=== PATIENT | female | born 1955 | race Caucasian/White ===

== ENCOUNTER 2018-01-13 12:35 | Outpatient (CLI) | payer BC | END 2018-01-13 12:36 | disposition home or self-care (01) | LOC: BICMAMMO 12:35 | PROVIDERS: ATTEND Internal Medicine | DX: Z12.31 Encounter for screening mammogram for malignant neoplasm of breast (principal) | CPT/HCPCS: 77063; 77067 ==

== ENCOUNTER 2019-01-16 08:57 | Outpatient (CLI) | payer BC, MEDICARE ==
--- NOTE | 2019-01-16 11:33 | MMO ---
Bilateral MAMMO Bilat Screen [facility]. CLINICAL HISTORY: Patient is 63 years old and is seen for screening. The patient has no family history of breast cancer. The patient has no personal history of cancer. VIEWS: The views performed were: bilateral craniocaudal with tomosynthesis and bilateral mediolateral oblique with tomosynthesis. FILMS COMPARED: The present examination has been compared to prior imaging studies performed at [facility] on 08/06/2014, 09/13/2015, 09/30/2016 and 01/13/2018. This study has been interpreted with the assistance of computer-aided detection. MAMMOGRAM FINDINGS: There are scattered fibroglandular densities. There are no suspicious masses, suspicious calcifications, or new areas of architectural distortion. IMPRESSION: THERE IS NO MAMMOGRAPHIC EVIDENCE OF MALIGNANCY. A ROUTINE FOLLOW-UP MAMMOGRAM IN 1 YEAR IS RECOMMENDED. THE RESULTS OF THIS EXAM WERE SENT TO THE PATIENT. ACR BI-RADS Category 1 - Negative MAMMOGRAPHY NOTE: 1. A negative mammogram report should not delay a biopsy if a dominant of clinically suspicious mass is present. 2. Approximately 10% to 15% of breast cancers are not detected by mammography. 3. Adenosis and dense breasts may obscure an underlying neoplasm. Reported by: KEVON ABARCA MD Electonically Signed: [id number]
== END 2019-01-16 08:58 | disposition home or self-care (01) ==
LOC: BICMAMMO 08:57
PROVIDERS: ATTEND Internal Medicine
DX: Z12.31 Encounter for screening mammogram for malignant neoplasm of breast (principal)
CPT/HCPCS: 77063; 77067

== ENCOUNTER 2019-02-23 08:48 | Outpatient (CLI) | payer MEDICARE, BC ==
--- NOTE | 2019-02-23 09:05 | RAD ---
EXAM: Chest PA and lateral: HISTORY: Musculoskeletal chest pain. COMPARISON: 03/04/2016 FINDINGS: Mediastinum: Hiatal hernia is redemonstrated Heart: Normal cardiac silhouette Aorta: Unremarkable Pulmonary vessels: Normal Costophrenic angles: Costophrenic angles are clear. Lungs: No consolidation or masses. Pneumothorax: No pneumothorax Osseous structures: No osseous abnormalities IMPRESSION: No acute cardiopulmonary process. Hiatal hernia is redemonstrated.
== END 2019-02-23 08:49 | disposition home or self-care (01) ==
LOC: BICRAD 08:48
PROVIDERS: ATTEND Internal Medicine
DX: R07.89 Other chest pain (principal); K44.9 Diaphragmatic hernia without obstruction or gangrene
CPT/HCPCS: 71046

== ENCOUNTER 2019-02-27 13:11 | Outpatient (CLI) | payer MEDICARE, BC | END 2019-02-27 13:12 | disposition home or self-care (01) | LOC: ULT 13:11 | PROVIDERS: ATTEND Internal Medicine | DX: R06.00 Dyspnea, unspecified (principal); R01.1 Cardiac murmur, unspecified; I08.8 Other rheumatic multiple valve diseases | CPT/HCPCS: 93306 ==

== ENCOUNTER 2019-03-26 10:59 | Inpatient (IN) | payer MEDICARE, BC ==
--- NOTE | 2019-03-26 11:46 | RAD ---
XR Chest 1 View Portable HISTORY: Dyspnea, low hemoglobin. COMPARISON: 02/23/2019 study. FINDINGS: Heart size and mediastinum are within normal limits. The lungs are clear of infiltrates. Th ere are no significant bony findings.. IMPRESSION: No active intrathoracic disease.
[2019-03-26] MEDS ORDERED: Pantoprazole 40 MG VIAL ONE (12:00)
[2019-03-26 12:08] LABS: PTT 24.9 SEC (22.9-36.1); Prothrombin Time 12.9 SEC (12.0-14.7)
[2019-03-26 12:10] LABS: D-Dimer Test 0.5 *mcg/mL (0.27-0.43)
[2019-03-26 12:22] LABS: ALT (SGPT) 10 U/L (8-55); AST (SGOT) 13 U/L (5-34); Albumin 3.8 g/dL (3.4-4.8); Alkaline Phosphatase 52 U/L (40-110); Anion Gap 12 mmol/L (10-20); BUN (Urea Nitrogen) 16 mg/dL (9.8-20.1); Bilirubin, Total 0.2 mg/dL (0.2-1.2); CK (CPK) 25 U/L (29-168); Calc. Creatinine Clearance 0 mL/min (70-130); Calcium 9.1 mg/dL (7.8-10.44); Carbon Dioxide 23 mmol/L (23-31); Chloride 108 mmol/L (98-107); Estimated GFR-MDRD 80; Globulin 2.3 g/dL (2.4-3.5); Glucose 88 mg/dL (80-115); Lipase 30 U/L (8-78); Potassium 4.5 mmol/L (3.5-5.1); Protein, Total 6.1 g/dL (6.0-8.3); Sodium 138 mmol/L (136-145)
[2019-03-26 12:24] LABS: #Eosinphils 0.5 thou/uL (0.0-0.7); #Lymphocytes 2.1 thou/uL (1.20-3.40); #Monocytes 0.4 thou/uL (0.11-0.59); #Neutrophils 3.8 thou/uL (1.40-6.50); %Basophils 0.7 % (0.0-1.0); %Eosinophils 6.7 % (0.0-10.0); %Lymphocytes 31.1 % (21.0-51.0); %Neutrophils 55.4 % (42.0-75.0); Hemoglobin 6.2 g/dL (12.0-16.0); Hypochromia MODERATE=16-30 cells (100X) (0-5/hpf); MDiff Complete? YES; Mean Corpuscular HGB CONC 28.8 g/dL (32.0-36.0); Mean Corpuscular Hemoglobin 17.8 pg (27.0-31.0); Mean Corpuscular Volume 61.9 fL (78.0-98.0); Mean Platelet Volume 11.2 fL (7.4-10.4); Microcytosis MODERATE=15-30 cells (100X) (0-5/hpf); Platelet Count 336 thou/uL (130-400); Platelet Morphology Comment Appears Adequate; Poikilocytosis SLIGHT = 6-15 cells (100X) (0-5/hpf); Polychromasia SLIGHT = 2-3 cells (100X) (0-2/hpf); RBC Distribution Width 18.3 % (11.5-14.5); Red Blood Cell (RBC) Count 3.47 mill/uL (4.20-5.40); Reflex for Review?? YES; White Blood Cell (WBC) Count 6.8 thou/uL (4.8-10.8)
[2019-03-26] MEDS ORDERED: Iopamidol-370 76% 500 ML 1 ML ONE (12:32)
--- NOTE | 2019-03-26 13:11 | CT ---
CT angiogram of chest performed with intravenous contrast enhancement with 3-D reconstructions HISTORY: Elevated d-dimer. Dyspnea. Low hemoglobin. COMPARISON: None. FINDINGS: The lungs are clear of any infiltrative process. No pulmonary nodules or pleural effusions are identified. There is no significant mediastinal or hilar adenopathy. No significant axillary adenopathy. A modera tely large hiatal hernia is seen. The thoracic aorta is normal in caliber. There is good pulmonary artery opacification, there is no CT evidence for pulmonary embolus. Visualized liver parenchyma shows no focal findings. Right and left adrenal glands are normal. IMPRESSION: 1. No CT evidence for pulmonary embolus. 2. Hiatal hernia.
[2019-03-26 13:41] LABS: Bilirubin Negative (Negative); Blood, Urine Negative (Negative); Clarity Clear (Clear); Glucose, Urine (Dipstick) Normal (Negative); Leukocyte Negative Leu/uL (Negative); Nitrite Negative (Negative); Protein, Urine (Dipstick) Negative (Neg-Trace); Urobilinogen Normal mg/dL (Less than 2)
[2019-03-26] MEDS ORDERED: Bisacodyl 5 MG TAB PO PRN (14:06)
[2019-03-26] MEDS ORDERED: Ondansetron PF 4 MG/2 ML Vial IVP PRN (14:06)
--- NOTE | 2019-03-26 14:50 | HP ---
PRIMARY CARE PROVIDER: Lowell Dupree MD CHIEF COMPLAINT: Anemia. HISTORY OF PRESENT ILLNESS: Ms. Garcia is a pleasant 63-year-old lady, who was seen at [facility] on March 26, 2019. She reports that she had a colonoscopy by Dr. Rodriguez 2 years ago, which was reportedly normal. Since January 2019, she has been feeling tired. On February 20, she was cooking at a nic event when she felt sudden onset of feeling very tired and shortness of breath. She also reported feeling lightheaded since then. She denies any flu-like symptoms. She was seen by her primary care provider on February 22. She had an echocardiogram on February 27, which showed left ventricular ejection fraction of 60% to 65%, E/A flow reversal suggestive of diastolic dysfunction, normal right ventricular size and function, moderately dilated left atrium, mildly enlarged right atrium, [id number] mitral regurgitation, mild aortic regurgitation, and mild tricuspid regurgitation. She was seen by Cardiology, Dr. Juarez, 2 days ago. She had blood work done. She was advised to go to the emergency room because of low hemoglobin. She denies any fevers or chills. She reports occasional twinge of epigastric discomfort. REVIEW OF SYSTEMS: All systems were reviewed and found to be negative, except for the pertinent positives mentioned above. PAST MEDICAL HISTORY: Hypertension, gastroesophageal reflux disease, fibromyalgia, eczema, and migraines. PAST SURGICAL HISTORY: Appendectomy, tonsillectomy, section, hysterectomy, bilateral cataract surgery, sinus surgeries, and right saphenous vein surgery. SOCIAL HISTORY: The patient denies tobacco use, alcohol use, or recreational drug use. ALLERGIES: ACETAMINOPHEN, DARVOCET, DIAZEPAM, HYDROCHLOROTHIAZIDE, NITROFURANTOIN, PROPOXYPHENE, AND VALIUM. CURRENT MEDICATIONS: 1. Premarin 0.05 mg daily. 2. Losartan 100 mg daily. 3. Bystolic 10 mg in the evening. 4. Synthroid 75 mcg daily. 5. Amitriptyline 150 mg in the evening. 6. Fenofibrate 120 mg daily. 7. Nexium 40 mg daily. 8. Ropinirole 0.5 mg 3 times a day. 9. Naproxen 500 mg 2 times a day. 10. Dupixent 300 mg subcutaneously every week. 11. Vascepa 2 g two times a day. 12. Aspirin 81 mg daily. FAMILY HISTORY: Significant for leukemia in her maternal grandmother and stroke in her mother. PHYSICAL EXAMINATION: GENERAL: On examination, Ms. Garcia is awake and alert, not in acute distress. VITAL SIGNS: Blood pressure 182/96, pulse 78, respiratory rate 16, and oxygen saturation 96% on room air. She is afebrile. EYES: No scleral icterus. The patient has conjunctival pallor. ENT: Moist mucosal membranes. No oropharyngeal erythema or exudates. NECK: Supple, nontender. Trachea is midline. RESPIRATORY: Accessory muscles of breathing are not active. Chest wall movements are symmetric bilaterally. Lungs are clear to auscultation without wheeze, rhonchi, or crepitations. CARDIOVASCULAR: S1 and S2 are heard, regular. Peripheral pulses palpable. ABDOMEN: Soft, nontender. Bowel sounds are heard. NEUROLOGIC: Cranial nerves 2 through 12 are intact. MUSCULOSKELETAL: Power is 5/5 in all 4 extremities. SKIN: No rashes. LYMPHATIC: No cervical lymphadenopathy. PSYCHIATRIC: Normal mood. Normal affect. The patient is oriented to person, place, and time. LABORATORY DATA AND IMAGING STUDIES: Ms. Garcia's labs and investigations were reviewed. Electrocardiogram shows normal sinus rhythm, no ST changes to suggest an acute coronary syndrome. Chest x-ray did not show any pulmonary infiltrates. CT angiogram of the chest did not show any evidence of pulmonary embolism. She has a hiatal hernia. She has normal white count, microcytic anemia with hemoglobin 6.2, MCV 61.9, RDW 18.3, normal platelet count of 336,000, microcytosis and hypochromia. INR 1.0. D-dimer elevated at 0.5, globulin decreased at 2.3, and chloride elevated at 108. Otherwise unremarkable comprehensive metabolic profile. BNP mildly elevated at 128.5, and a negative urinalysis. ASSESSMENT AND PLAN: Ms. Garcia is a pleasant 63-year-old lady, who was seen at [facility] on March 26, 2019, Her problem list includes: 1. Symptomatic anemia: Ms. Garcia is presenting with symptomatic anemia, microcytic. She will be admitted to the hospital. She is receiving packed RBC transfusions. We will order iron studies, vitamin B12, and folate. We will also check TSH. Gastroenterology Service has been consulted by emergency room physician. She may need Hematology consultation as well. 2. Hypothyroidism: Continue Synthroid, check TSH. 3. Gastroesophageal reflux disease: Continue PPI. 4. Hypertension: Resume home medications, monitor vital signs and titrate antihypertensives as needed. Many thanks for allowing me to participate in your patient's care. Please feel free to contact me with any questions or concerns. LEVEL OF RISK: Moderate. LEVEL OF COMPLEXITY: Moderate. Job ID: [id number]
[2019-03-26 14:59] LABS: Iron 11 ug/dL (50-170); Iron Binding Capacity, Total 646 mcg/dL (265-497)
[2019-03-26 15:19] LABS: Ferritin Less than 2.00 ng/mL (10-291); Thyroid Stimulating Hormone 0.3545 uIU/mL (0.35-4.94)
[2019-03-26 15:59] VITALS: BMI 32.5
--- NOTE | 2019-03-26 18:24 | CON ---
DATE OF CONSULTATION: 03/26/2019 CHIEF COMPLAINT: Weakness and shortness of breath on exertion. HISTORY OF PRESENT ILLNESS: Ms. Garcia is a 63-year-old woman, who about a month ago developed some gradual onset of weakness with exertion and aching in her muscles. She had a sharp upper epigastric pain that radiated through to her back. That went on for a couple of weeks. She has had no nausea or vomiting. She has seen no black stools or red blood in her stool. She over the last couple of weeks noted increased shortness of breath on exertion, even more extreme shortness of breath with just walking a few feet over the last week. She saw the sample examiner, Dr. Juarez last week and blood work was obtained that showed that she had severe anemia associated with the symptoms and she was advised to go into the emergency room for further care. She was confirmed to have iron deficiency. She had a colonoscopy by Dr. Rodriguez in September 2012, that was normal. She has been taking naproxen a couple of tablets daily as well as aspirin 81 mg daily. PAST MEDICAL HISTORY: Hypertension, gastroesophageal reflux disease, fibromyalgia, eczema, and migraines. PAST SURGICAL HISTORY: Appendectomy, tonsillectomy, , hysterectomy, cataract surgery, sinus surgery, right saphenous vein surgery. Her last colonoscopy was 2012. FAMILY HISTORY: Negative for GI malignancy. SOCIAL HISTORY: No alcohol, tobacco, or drugs. ALLERGIES: DIAZEPAM, HYDROCHLOROTHIAZIDE, NITROFURANTOIN, AND PROPOXYPHENE. OUTPATIENT MEDICATIONS: Include: 1. CoQ10. 2. Vitamin D. 3. Aspirin. 4. Nebivolol. 5. Naproxen 500 mg twice daily. 6. Fenofibrate. 7. Nexium 20 mg daily. 8. Losartan. 9. Premarin. 10. Amitriptyline. 11. Ropinirole. 12. Vascepa. 13. Synthroid. 14. Dupilumab subcutaneous. REVIEW OF SYSTEMS: Negative x10 systems reviewed, except as stated in the history of present illness. PHYSICAL EXAMINATION: VITAL SIGNS: Blood pressure 166/91, pulse 76, and temperature 98.6. GENERAL: She is in no acute distress. Alert and oriented x3. HEENT: Eyes have no scleral icterus. Oropharynx is clear without lesions. No cervical or supraclavicular lymphadenopathy. LUNGS: Clear to auscultation bilaterally. HEART: Regular rate and rhythm without murmur. ABDOMEN: Soft, nontender, and nondistended. Bowel sounds are present. EXTREMITIES: No lower extremity edema. LABORATORY DATA: White blood cell count 6.8, hemoglobin 6.2, MCV 61.9, platelets 336. INR 1.0. Creatinine 0.73. Iron 11, TIBC 646, ferritin . Bilirubin 0.2, AST 13, ALT 10, alkaline phosphatase 52, albumin 3.8, lipase 30. TSH 0.3, folate 7.9, and B12 of 315. IMPRESSION: Severe iron-deficiency anemia. She has had no overt bleeding, however, has been on naproxen and aspirin and did have sharp epigastric pain that radiated to her back for a couple of weeks. She has been on Nexium, but still could have a peptic ulcer. We will need to rule out other gastrointestinal bleeding source as well. RECOMMENDATIONS: 1. We will give a bowel prep this evening. 2. Plan colonoscopy and EGD tomorrow morning. Job ID: [id number]
[2019-03-26] MEDS: GoLYTELY 4,000 ml Bottle PO SCH ×2 (18:29→23:47)
[2019-03-26] MEDS: rOPINIRole HCl 0.5 MG TAB PO SCH (20:40)
[2019-03-26] MEDS ORDERED: Nebivolol HCl 5 MG TAB PO SCH (21:00)
[2019-03-26] MEDS ORDERED: Aspirin 81 mg Enteric Coated Tablet PO SCH (21:00)
[2019-03-26] MEDS ORDERED: Amitriptyline HCl 100 MG TAB PO SCH (21:00)
[2019-03-27 04:40] LABS: #Basophils 0.1 thou/uL (0.0-0.2); #Eosinphils 0.6 thou/uL (0.0-0.7); #Lymphocytes 2.2 thou/uL (1.20-3.40); #Monocytes 0.5 thou/uL (0.11-0.59); #Neutrophils 5.9 thou/uL (1.40-6.50); %Basophils 0.9 % (0.0-1.0); %Eosinophils 6.2 % (0.0-10.0); %Lymphocytes 23.8 % (21.0-51.0); %Monocytes 5.3 % (0.0-10.0); %Neutrophils 63.8 % (42.0-75.0); Mean Corpuscular HGB CONC 30.4 g/dL (32.0-36.0); Mean Corpuscular Hemoglobin 20.1 pg (27.0-31.0); Mean Platelet Volume 11.6 fL (7.4-10.4); Platelet Count 319 thou/uL (130-400); RBC Distribution Width 21.4 % (11.5-14.5); Red Blood Cell (RBC) Count 3.97 mill/uL (4.20-5.40); White Blood Cell (WBC) Count 9.3 thou/uL (4.8-10.8)
[2019-03-27 04:43] LABS: Anion Gap 12 mmol/L (10-20); BUN (Urea Nitrogen) 15 mg/dL (9.8-20.1); Calc. Creatinine Clearance 123 mL/min (70-130); Calcium 8.7 mg/dL (7.8-10.44); Carbon Dioxide 24 mmol/L (23-31); Chloride 111 mmol/L (98-107); Estimated GFR-MDRD Greater than 90; Glucose 85 mg/dL (80-115); Potassium 3.9 mmol/L (3.5-5.1); Sodium 143 mmol/L (136-145)
[2019-03-27] MEDS ORDERED: Ondansetron HCl/PF 4 MG/2 ML Vial IVP PRN (08:54)
[2019-03-27] MEDS ORDERED: Promethazine HCl 25 MG/ML VIAL IM PRN (08:54)
[2019-03-27] MEDS ORDERED: Promethazine HCl 25 MG/ML VIAL SLOW IVP PRN (08:54)
[2019-03-27] MEDS ORDERED: Levothyroxine Sodium 75 MCG TAB PO SCH (09:00)
[2019-03-27] MEDS ORDERED: FENOFIBRATE MICRONIZED 130 MG PO SCH (09:00)
[2019-03-27] MEDS ORDERED: Ubidecarenone 50 MG CAP PO SCH (09:00)
[2019-03-27] MEDS ORDERED: Losartan 25 MG TAB PO SCH (09:00)
[2019-03-27] MEDS ORDERED: Icosapent Ethyl 1 GM CAPSULE PO SCH ×2 (09:00)
--- NOTE | 2019-03-27 09:42 | OP ---
DATE OF PROCEDURE: 03/27/2019 PROCEDURES PERFORMED: 1. Esophagogastroduodenoscopy with biopsy. 2. Colonoscopy. PREOPERATIVE DIAGNOSIS: Severe iron-deficiency anemia. DESCRIPTION OF PROCEDURE: Informed consent was obtained from the patient. She was sedated with total intravenous anesthesia. The bite block was placed and the endoscope was advanced easily to the second portion of the duodenum and retroflexion was performed in the stomach. The esophagus was normal. There was a 4 cm hiatal hernia present. There was an 8-mm white, clean-based, shallow ulcer in the antrum. This was a discrete ulcer and it was very benign-appearing. Biopsies were obtained from the antrum and body to rule out H pylori. The pylorus and first and second portions of the duodenum were normal. Retroflex views in the stomach were normal except for the hiatal hernia. There was no stigmata of recent bleeding. The patient was turned around. Rectal exam was performed and was normal. The colonoscope was advanced to the terminal ileum without difficulty. The mucosa of the terminal ileum was normal. The ileocecal valve and appendiceal orifice were clearly identified. The preparation quality was good. The colonic mucosa was normal throughout. There was mild diverticulosis in the sigmoid colon. Retroflex views in the rectum revealed moderate internal hemorrhoids. IMPRESSION: 1. A 4-cm hiatal hernia. 2. An 8-mm ulcer in the antrum, this is a clean white-based ulcer without stigmata of recent bleeding. I suspect this was the most likely cause of her anemia; however, it was more likely more significant ulcer previously and is now healing. She had typical pain 2 weeks ago, but that has resolved. The symptoms of the anemia have been progressive. The ulcer is most likely secondary to nonsteroidal anti-inflammatory drugs. However, biopsies were obtained to rule out Helicobacter pylori. This is low risk for any acute rebleeding, and when she is adequately transfused an iron supplement given that she could likely be discharged home today. 3. Otherwise normal esophagogastroduodenoscopy. 4. Mild sigmoid diverticulosis. 5. Moderate internal hemorrhoids. 6. Otherwise normal colonoscopy to the terminal ileum. RECOMMENDATIONS: 1. She has received a couple units of transfusion. Her hemoglobin has improved to 8. Consider IV iron infusion. She can also likely be discharged home today on oral iron supplementation. 2. Proton pump inhibitor daily, pantoprazole 40 mg daily. 3. Advance her diet. As she is doing well, she can likely be discharged home later today. 4. Follow up in GI Clinic with Dr. Rodriguez. If her anemia fails to resolve rapidly with treatment of the ulcer and iron supplementation, then consider small-bowel capsule endoscopy to evaluate for an alternative source. For now, I think the antral ulcer is adequate explanation for anemia. 5. Repeat colonoscopy in 10 years for screening. Job ID: [id number]
[2019-03-27] MEDS ORDERED: PROPOFOL 200 MG/20 ML VIAL ONE (10:27)
[2019-03-27] MEDS ORDERED: Lidocaine 1% PF 5 ML VIAL ONE (10:27)
[2019-03-27] MEDS: rOPINIRole HCl 0.5 MG TAB PO SCH (11:18)
[2019-03-27] MEDS ORDERED: Iron Sucrose Complex 200 MG in Sodium Chloride 0.9% 250 ML 250 ML IVPB SCH (12:00)
[2019-03-27] MEDS ORDERED: Ferrous Sulfate 325 MG TAB PO SCH (12:00)
[2019-03-27] MEDS ORDERED: Acetaminophen 650 MG/20.3 ML UDCUP PO PRN (12:47)
[2019-03-27] MEDS ORDERED: Acetaminophen 325 MG TAB PO PRN (13:05)
[2019-03-27 13:26] VITALS: BP 160/77; TEMP 97.8
[2019-03-27] MEDS ORDERED: Nebivolol HCl 5 MG TAB PO SCH (21:00)
--- NOTE | 2019-03-27 22:07 | DIS ---
DATE OF ADMISSION: 03/26/2019 DATE OF DISCHARGE: 03/27/2019 PRIMARY CARE PROVIDER: Lowell Dupree MD DISCHARGE DIAGNOSES: 1. Symptomatic anemia. 2. Gastric antral ulcer. 3. Iron deficiency. CONDITION OF PATIENT ON THE DAY OF DISCHARGE: Stable. I assessed Ms. Garcia on the day of discharge. She denies any chest pain or shortness of breath. Vital signs are stable. S1 and S2 are heard, regular. Lungs are clear to auscultation bilaterally. CONSULTATIONS DURING THIS HOSPITALIZATION: Gastroenterology, Pierre Lagos MD DISCHARGE MEDICATIONS: She is being started on ferrous sulfate 325 mg daily. She has been advised to stop naproxen. She has also been advised to discuss with her primary care provider regarding the need for aspirin. Otherwise, no change was made to her pre-admission home medications as dictated in my history and physical note dated March 26, 2019. HOSPITAL COURSE: Ms. Garcia is a pleasant 63-year-old lady, who was admitted to [facility] on March 26, 2019, for symptomatic anemia. She had low iron of 11, elevated TIBC of 646, and low ferritin of less than 2. She was seen by Gastroenterology Service and underwent bidirectional scopes. She was found to have a 4 cm hiatal hernia, 8 mm ulcer in the antrum with a clean white-based ulcer without stigmata of recent bleeding. She also had mild sigmoid diverticulosis, moderate internal hemorrhoids, and otherwise normal colonoscopy to the terminal ileum. She is being transfused with iron. She is also being started on ferrous sulfate. She has been advised to stop nonsteroidal anti-inflammatory drugs. Biopsies were taken to rule out Helicobacter pylori. She will need to follow up with Gastroenterology Service for the same. POST-ACUTE CARE FOLLOWUP: With Gastroenterology Service in 2 weeks and with primary care provider in 3 days. She received 2 units of packed RBC transfusion during this hospitalization. On the day of discharge, she has white count of 9300, hemoglobin 8, platelet count 319,000. Sodium 143, potassium 3.9, and creatinine 0.62. TSH during this hospitalization was normal at 0.3545. Folate was normal at 7.90. Vitamin B12 was normal at 315. Many thanks for allowing me to participate in your patient's care. Please feel free to contact me with any questions or concerns. DISCHARGE DESTINATION: Home. TIME SPENT: Total amount of time spent coordinating this discharge: 18 minutes. DIET: Heart Healthy. ACTIVITY: Ad arsenio. Job ID: [id number] MTDD
[2019-03-28] MEDS ORDERED: Ferrous Sulfate 325 MG TAB PO SCH (08:00)
== END 2019-03-27 15:59 | disposition home or self-care (01) | DRG 812 ==
LOC: ERS 10:59 → ONC 15:29
PROVIDERS: ADMIT Internal Medicine; ATTEND Internal Medicine
PROC: 30233N1 Transfusion of Nonautologous Red Blood Cells into Peripheral Vein, Percutaneous Approach (ICD-10-PCS; 2019-03-26)
PROC: 0DB78ZX Excision of Stomach, Pylorus, Via Natural or Artificial Opening Endoscopic, Diagnostic (ICD-10-PCS; principal; 2019-03-27)
PROC: 0DJD8ZZ Inspection of Lower Intestinal Tract, Via Natural or Artificial Opening Endoscopic (ICD-10-PCS; 2019-03-27)
DX: D50.9 Iron deficiency anemia, unspecified (principal); K25.9 Gastric ulcer, unspecified as acute or chronic, without hemorrhage or perforation; K44.9 Diaphragmatic hernia without obstruction or gangrene; K57.30 Diverticulosis of large intestine without perforation or abscess without bleeding; K64.8 Other hemorrhoids; I10 Essential (primary) hypertension; K21.9 Gastro-esophageal reflux disease without esophagitis; M79.7 Fibromyalgia; E03.9 Hypothyroidism, unspecified; G43.909 Migraine, unspecified, not intractable, without status migrainosus; I08.3 Combined rheumatic disorders of mitral, aortic and tricuspid valves; Z90.49 Acquired absence of other specified parts of digestive tract; Z90.710 Acquired absence of both cervix and uterus; Z98.42 Cataract extraction status, left eye; Z98.41 Cataract extraction status, right eye; Z88.8 Allergy status to other drugs, medicaments and biological substances
CPT/HCPCS: 36415; 36430; 71045; 71275; 80048; 80053; 81003; 82274; 82550; 82607; 82728; 82746; 83540; 83550; 83690; 83880; 84443; 84484; 85025; 85060; 85379; 85610; 85730; 86850; 86900; 86901; 88305; 88312; 93005; C9113; J1756; J2001; J2704; J7050; P9016; Q9967

== ENCOUNTER 2019-05-18 07:35 | Outpatient (CLI) | payer MEDICARE, BC ==
[2019-05-18 08:02] LABS: Estimated GFR-MDRD - POC Greater than 90
--- NOTE | 2019-05-18 09:36 | CT ---
CT OF THE ABDOMEN AND PELVIS WITH IV CONTRAST INDICATION: Iron deficiency anemia, gastric ulcer and weight loss COMPARISON: None FINDINGS: ABDOMEN: Lung bases: There is mild right basilar atelectasis. There is mild compressive atelectasis of the lef t lower lobe from a moderate size hiatal hernia Liver: No focal lesion. Gallbladder: Normal appearing. Pancreas: Normal. Adrenal glands: Normal. Spleen: Normal. Kidneys and ureters: Normal. No hydronephrosis. Vasculature: Mild vascular Lymph nodes:No lymphadenopathy. Free fluid in abdomen:No free fluid is evident. PELVIS: Small and large bowel: Mild amount retained stool within the colon. There is a moderate size hiatal h ernia. Small bowel is of normal caliber. Appendix:Not visualized Bladder: Normal. Rectal and perirectal soft tissues:Normal. Reproductive structures: Surgically absent Free fluid in pelvis: No free fluid is evident. Lymphadenopathy pelvis: No lymphadenopathy is evident. Osseous structures: No acute osseous abnormality. No destructive osteolytic or osteoblastic lesion i s identified. There is scattered degenerative and osteoarthritic changes. Soft tissues:Normal. IMPRESSION: 1. Moderate size hiatal hernia. 2. Mild amount retained stool within the colon. 3. Postsurgical change of appendectomy and hysterectomy. 4. No acute suspicious abnormality demonstrated.
[2019-05-18] MEDS ORDERED: Iopamidol-370 76% 500 ML 1 ML ONE (14:33)
== END 2019-05-18 07:36 | disposition home or self-care (01) ==
LOC: BICCT 07:35
PROVIDERS: ATTEND Internal Medicine Gastroenterology
DX: D50.9 Iron deficiency anemia, unspecified (principal); R63.4 Abnormal weight loss; K25.9 Gastric ulcer, unspecified as acute or chronic, without hemorrhage or perforation; K44.9 Diaphragmatic hernia without obstruction or gangrene; K59.00 Constipation, unspecified; Z90.710 Acquired absence of both cervix and uterus; Z90.89 Acquired absence of other organs
CPT/HCPCS: 74177; 82565; Q9967

== ENCOUNTER 2020-01-18 08:02 | Outpatient (CLI) | payer MEDICARE, BC ==
--- NOTE | 2020-01-18 08:38 | MMO ---
Bilateral MAMMO Bilat Screen [facility]. CLINICAL HISTORY: Patient is 64 years old and is seen for screening. The patient has no family history of breast cancer. The patient has no personal history of cancer. VIEWS: The views performed were: bilateral craniocaudal with tomosynthesis and bilateral mediolateral oblique with tomosynthesis. FILMS COMPARED: The present examination has been compared to prior imaging studies performed at [facility] on 09/13/2015, 09/30/2016, 01/13/2018 and 01/16/2019. This study has been interpreted with the assistance of computer-aided detection. MAMMOGRAM FINDINGS: There are scattered fibroglandular densities. There are no suspicious masses, suspicious calcifications, or new areas of architectural distortion. IMPRESSION: THERE IS NO MAMMOGRAPHIC EVIDENCE OF MALIGNANCY. A ROUTINE FOLLOW-UP MAMMOGRAM IN 1 YEAR IS RECOMMENDED. THE RESULTS OF THIS EXAM WERE SENT TO THE PATIENT. ACR BI-RADS Category 1 - Negative MAMMOGRAPHY NOTE: 1. A negative mammogram report should not delay a biopsy if a dominant of clinically suspicious mass is present. 2. Approximately 10% to 15% of breast cancers are not detected by mammography. 3. Adenosis and dense breasts may obscure an underlying neoplasm. Reported by: MAICO HARDY MD Electonically Signed: [id number]
--- NOTE | 2020-01-18 09:50 | BD ---
DEXA BONE DENSITY STUDY: Date: 01/18/2020 HISTORY: Postmenopausal. FINDINGS: Lumbar Spine: BMD (g/cm2) L1 0.891 T-Score: -0.9 L2 0.997 T-Score: -0.3 L3 0.973 T-Score: -1.0 L4 0.996 T-Score: -0.6 Total 0.966 T-Score: -0.7 Left Femoral Neck: 0.732 T-Score: -1.1 Total Femur: 0.884 T-Score: -0.5 IMPRESSION: Osteopenia of the left femoral neck. Normal bone mineral density of the lumbar spine. 10 year fracture risk for major osteoporotic fracture is 15% and for a hip fracture is 0.8%. These fr acture probabilities were calculated for an untreated patient. POS: VIOLETTE
== END 2020-01-18 08:03 | disposition home or self-care (01) ==
LOC: BICMAMMO 08:02
PROVIDERS: ATTEND Internal Medicine
DX: Z12.31 Encounter for screening mammogram for malignant neoplasm of breast (principal); M81.0 Age-related osteoporosis without current pathological fracture; M85.852 Other specified disorders of bone density and structure, left thigh
CPT/HCPCS: 77063; 77067; 77080

== ENCOUNTER 2020-08-14 08:53 | Outpatient (CLI) | payer MEDICARE, BC ==
[2020-08-14 18:20] LABS: SARS-CoV-2 PCR by NAA Not Detected (NotDetected)
== END 2020-08-14 08:54 | disposition home or self-care (01) ==
LOC: LABBT 08:53
PROVIDERS: ATTEND Internal Medicine Gastroenterology
DX: Z01.812 Encounter for preprocedural laboratory examination (principal); K21.9 Gastro-esophageal reflux disease without esophagitis; K44.9 Diaphragmatic hernia without obstruction or gangrene; R07.89 Other chest pain; Z20.822 Contact with and (suspected) exposure to COVID-19
CPT/HCPCS: U0003; U0005; 87635

== ENCOUNTER → 2020-08-20 | Day surgery (SDC) | payer MEDICARE, BC | LOC: RAD 09:40 → EDSTATUS 10:00 | PROVIDERS: ATTEND Internal Medicine Gastroenterology | DX: K44.9 Diaphragmatic hernia without obstruction or gangrene (principal); K21.9 Gastro-esophageal reflux disease without esophagitis; R07.9 Chest pain, unspecified; Z88.1 Allergy status to other antibiotic agents; Z88.8 Allergy status to other drugs, medicaments and biological substances | CPT/HCPCS: 74220; 91010 ==

== ENCOUNTER 2020-08-22 08:03 | Outpatient (CLI) | payer MEDICARE, BC ==
[2020-08-22 09:43] LABS: #Basophils 0.1 10x3/uL (0.0-0.2); #Eosinphils 0.2 10x3/uL (0.0-0.5); #Monocytes 0.4 10x3/uL (0.0-1.1); #Neutrophils 3.8 10x3/uL (1.5-8.4); %Basophils 1.1 % (0.0-2.0); %Eosinophils 3.2 % (0.0-6.0); %Lymphocytes 37.6 % (18.0-47.0); %Monocytes 5.9 % (0.0-10.0); %Neutrophils 51.5 % (40.0-75.0); Hemoglobin 13.7 g/dL (12.0-15.5); Mean Corpuscular HGB CONC 32.1 g/dL (32.0-36.0); Mean Corpuscular Hemoglobin 31.3 pg (27.0-33.0); Mean Corpuscular Volume 97.5 fl (81.6-98.3); Platelet Count 231 10x3/uL (150-450); RBC Distribution Width 12.2 % (11.5-14.5); Red Blood Cell (RBC) Count 4.38 10x6/uL (3.90-5.03); White Blood Cell (WBC) Count 7.5 10x3/uL (3.5-10.5)
[2020-08-22 10:03] LABS: Anion Gap 16 mmol/L (10-20); BUN (Urea Nitrogen) 15 mg/dL (9.8-20.1); Calc. Creatinine Clearance 0 mL/min (70-130); Calcium 9.7 mg/dL (7.8-10.44); Carbon Dioxide 23 mmol/L (23-31); Chloride 104 mmol/L (98-107); Glucose 107 mg/dL (80-115); Sodium 139 mmol/L (136-145)
[2020-08-22 16:44] LABS: SARS-CoV-2 PCR by NAA Not Detected (NotDetected)
== END 2020-08-22 08:04 | disposition home or self-care (01) ==
LOC: LABBT 08:03
PROVIDERS: ATTEND Surgery
DX: Z01.818 Encounter for other preprocedural examination (principal); K44.9 Diaphragmatic hernia without obstruction or gangrene; Z20.822 Contact with and (suspected) exposure to COVID-19
CPT/HCPCS: 80048; 85025; 93005; U0003; U0005; 87635; 93010

== ENCOUNTER 2020-08-27 08:21 | Observation (INO) | payer MEDICARE, BC ==
[2020-08-26 11:31] VITALS: BMI 34.0
[2020-08-27] MEDS ORDERED: Fentanyl 100 MCG/2 ML VIAL ONE ×4 (09:11→14:25)
[2020-08-27] MEDS ORDERED: Bupivacaine 0.25% HCL 30 ML VIAL ONE (10:20)
[2020-08-27] MEDS ORDERED: Lidocaine 1% w/Epinephrine 1:100K 20 ML VIAL ONE (10:20)
[2020-08-27] MEDS ORDERED: SUGAMMADEX SODIUM 200 MG/2 ML VIAL ONE (10:33)
[2020-08-27] MEDS ORDERED: Labetalol HCl 100 MG/20 ML VIAL ONE (10:40)
[2020-08-27] MEDS ORDERED: Glycopyrrolate 0.2 MG/ML 5 ML SYRINGE ONE (10:40)
[2020-08-27] MEDS ORDERED: Dexamethasone 20 MG/5 ML VIAL ONE (10:40)
[2020-08-27] MEDS ORDERED: Rocuronium Bromide 10 MG/ML (10ML VIAL) ONE (10:40)
[2020-08-27] MEDS ORDERED: Lidocaine 1% PF 5 ML VIAL ONE (10:40)
[2020-08-27] MEDS ORDERED: PROPOFOL 200 MG/20 ML VIAL ONE (10:40)
[2020-08-27] MEDS ORDERED: ePHEDrine Sulfate 50 MG/10 ML VIAL ONE (10:40)
[2020-08-27] MEDS ORDERED: Ondansetron PF 4 MG/2 ML Vial IVP PRN (15:31)
[2020-08-27] MEDS ORDERED: Ondansetron ODT 4 MG TAB PO PRN (15:31)
[2020-08-27] MEDS ORDERED: Fentanyl 100 MCG/2 ML VIAL SLOW IVP PRN (15:33)
[2020-08-27] MEDS: Fentanyl 100 MCG/2 ML VIAL SLOW IVP PRN ×5 (15:57→23:34)
[2020-08-27] MEDS: Dextrose 5 %-0.45 % NaCl 1,000 ML IV SCH (16:18)
[2020-08-27] MEDS: Hydrocodone-Acetamin 15 ML UDCUP PO PRN ×2 (16:45→22:26)
[2020-08-27] MEDS: rOPINIRole HCl 0.5 MG TAB PO SCH (19:59)
[2020-08-27] MEDS ORDERED: Fentanyl 100 MCG/2 ML VIAL SLOW IVP SCH (21:45)
[2020-08-27] MEDS: Ketorolac Tromethamine 30 MG/ML VIAL IVP PRN (21:47)
[2020-08-27] MEDS: Acetaminophen 325 MG TAB PO PRN (23:35)
[2020-08-28] MEDS: Fentanyl 100 MCG/2 ML VIAL SLOW IVP PRN ×4 (02:16→14:02)
[2020-08-28] MEDS: Dextrose 5 %-0.45 % NaCl 1,000 ML IV SCH ×2 (02:18→10:40)
[2020-08-28] MEDS: Ketorolac Tromethamine 30 MG/ML VIAL IVP PRN ×2 (03:37→08:35)
[2020-08-28] MEDS ORDERED: Levothyroxine Sodium 75 MCG TAB PO SCH (06:00)
[2020-08-28] MEDS: rOPINIRole HCl 0.5 MG TAB PO SCH ×2 (08:32→14:02)
[2020-08-28] MEDS: Acetaminophen 325 MG TAB PO PRN (08:35)
[2020-08-28] MEDS ORDERED: Losartan 25 MG TAB PO SCH (09:00)
[2020-08-28] MEDS ORDERED: Nebivolol HCl 5 MG TAB PO SCH (09:00)
[2020-08-28] MEDS ORDERED: Pantoprazole 40 MG VIAL IVP SCH (09:00)
[2020-08-28 12:19] VITALS: BP 133/78; TEMP 97.8
== END 2020-08-28 14:54 | disposition home or self-care (01) ==
LOC: SDC 08:21 → T4-B 14:39
PROVIDERS: ADMIT Surgery; ATTEND Surgery
PROC: 0BQT4ZZ Repair Diaphragm, Percutaneous Endoscopic Approach (ICD-10-PCS; principal; 2020-08-27)
PROC: 0DV44ZZ Restriction of Esophagogastric Junction, Percutaneous Endoscopic Approach (ICD-10-PCS; 2020-08-27)
DX: K44.9 Diaphragmatic hernia without obstruction or gangrene (principal); K21.9 Gastro-esophageal reflux disease without esophagitis; E03.9 Hypothyroidism, unspecified; E78.5 Hyperlipidemia, unspecified; G43.909 Migraine, unspecified, not intractable, without status migrainosus; I10 Essential (primary) hypertension; E55.9 Vitamin D deficiency, unspecified; Z79.899 Other long term (current) drug therapy; Z88.1 Allergy status to other antibiotic agents; Z88.8 Allergy status to other drugs, medicaments and biological substances
CPT/HCPCS: 43281; 96374; 96375; G0378 ×2; C9113; J0690; J1100; J1885; J2405; J2704; J3010; Q0162; S0020

== ENCOUNTER 2020-12-27 11:17 | Outpatient (CLI) | payer MEDICARE, BC | END 2020-12-27 11:18 | disposition home or self-care (01) | LOC: ULT 11:17 | PROVIDERS: ATTEND Specialist | DX: R10.13 Epigastric pain (principal); K76.0 Fatty (change of) liver, not elsewhere classified | CPT/HCPCS: 76705 ==

== ENCOUNTER 2020-12-27 12:27 | Day surgery (SDC) | payer MEDICARE, BC ==
[2020-12-27] MEDS ORDERED: Lidocaine 1% w/Epinephrine 1:100K 30 ML VIAL ONE (13:12)
[2020-12-27] MEDS ORDERED: Bupivacaine PF 0.5% 30 ML VIAL ONE (13:12)
[2020-12-27] MEDS ORDERED: Acetaminophen 500 MG TAB ONE (13:18)
[2020-12-27] MEDS ORDERED: Levofloxacin 500 mg/D5W 100 ml Premix Bag ONE (13:18)
[2020-12-27] MEDS ORDERED: Famotidine/PF 20 mg/2ml Vial ONE (13:18)
[2020-12-27] MEDS ORDERED: Ketorolac Tromethamine 30 MG/ML VIAL ONE (13:19)
[2020-12-27] MEDS ORDERED: Scopolamine 1.5 mg/72 hour Patch ONE (13:19)
[2020-12-27 13:36] LABS: #Basophils 0.1 thou/uL (0.0-0.2); #Eosinphils 0.1 thou/uL (0.0-0.7); #Lymphocytes 0.8 thou/uL (1.20-3.40); #Monocytes 0.2 thou/uL (0.11-0.59); #Neutrophils 6.6 thou/uL (1.40-6.50); %Basophils 0.7 % (0.0-1.0); %Eosinophils 1.7 % (0.0-10.0); %Lymphocytes 10.2 % (21.0-51.0); %Monocytes 2.7 % (0.0-10.0); %Neutrophils 84.7 % (42.0-75.0); Hemoglobin 13.9 g/dL (12.0-16.0); Mean Corpuscular Hemoglobin 31.2 pg (27.0-31.0); Mean Corpuscular Volume 94.6 fL (78.0-98.0); Mean Platelet Volume 7.4 fL (7.4-10.4); Platelet Count 198 thou/uL (130-400); RBC Distribution Width 11.9 % (11.5-14.5); Red Blood Cell (RBC) Count 4.46 mill/uL (4.20-5.40); White Blood Cell (WBC) Count 7.7 thou/uL (4.8-10.8)
[2020-12-27] MEDS ORDERED: Fentanyl 100 MCG/2 ML VIAL ONE ×3 (13:38→16:22)
[2020-12-27 13:49] LABS: SARS-CoV-2 NAA Rapid Test Not Detected (NotDetected)
[2020-12-27] MEDS ORDERED: Ondansetron PF 4 MG/2 ML Vial ONE (13:50)
[2020-12-27 13:56] LABS: ALT (SGPT) 55 U/L (8-55); AST (SGOT) 71 U/L (5-34); Albumin 4.1 g/dL (3.4-4.8); Alkaline Phosphatase 81 U/L (40-110); Anion Gap 14 mmol/L (10-20); BUN (Urea Nitrogen) 13 mg/dL (9.8-20.1); Bilirubin, Total 0.6 mg/dL (0.2-1.2); Calc. Creatinine Clearance 0 mL/min (70-130); Calcium 10.6 mg/dL (7.8-10.44); Carbon Dioxide 27 mmol/L (23-31); Chloride 100 mmol/L (98-107); Globulin 2.5 g/dL (2.4-3.5); Glucose 124 mg/dL (80-115); Potassium 4.6 mmol/L (3.5-5.1); Protein, Total 6.6 g/dL (5.8-8.1); Sodium 136 mmol/L (136-145)
[2020-12-27] MEDS ORDERED: Dexamethasone 20 MG/5 ML VIAL ONE (14:18)
[2020-12-27] MEDS ORDERED: Rocuronium Bromide 10 MG/ML (10ML VIAL) ONE (14:18)
[2020-12-27] MEDS ORDERED: PHENYLEPHRINE-NS 100 MCG/ML 10 ML SYRINGE ONE (14:18)
[2020-12-27] MEDS ORDERED: Glycopyrrolate 0.2 MG/ML 5 ML SYRINGE ONE (14:18)
[2020-12-27] MEDS ORDERED: Lidocaine 1% PF 5 ML VIAL ONE (14:18)
[2020-12-27] MEDS ORDERED: PROPOFOL 200 MG/20 ML VIAL ONE (14:18)
[2020-12-27] MEDS ORDERED: Labetalol HCl 100 MG/20 ML VIAL ONE (14:18)
[2020-12-27] MEDS ORDERED: SUGAMMADEX SODIUM 200 MG/2 ML VIAL ONE (15:06)
[2020-12-27] MEDS ORDERED: HYDROcodone/Acetaminophen 5/325 mg Tablet ONE ×2 (17:09→17:11)
== END 2020-12-27 17:50 | disposition home health service (06) ==
LOC: SDC 12:27
PROVIDERS: ATTEND Specialist
PROC: 0FT44ZZ Resection of Gallbladder, Percutaneous Endoscopic Approach (ICD-10-PCS; principal; 2020-12-27)
DX: K81.1 Chronic cholecystitis (principal); E03.9 Hypothyroidism, unspecified; E78.5 Hyperlipidemia, unspecified; G43.909 Migraine, unspecified, not intractable, without status migrainosus; G60.9 Hereditary and idiopathic neuropathy, unspecified; I10 Essential (primary) hypertension; K21.9 Gastro-esophageal reflux disease without esophagitis; Z87.11 Personal history of peptic ulcer disease; Z79.899 Other long term (current) drug therapy; Z88.1 Allergy status to other antibiotic agents; Z88.8 Allergy status to other drugs, medicaments and biological substances; Z20.822 Contact with and (suspected) exposure to COVID-19; R10.13 Epigastric pain; K76.0 Fatty (change of) liver, not elsewhere classified
CPT/HCPCS: 47562; 76705; 80053; 85025; 93005; U0002; 36415; 88304; 93010; J1100; J1885; J1956; J2405; J2704; J3010; S0020; S0028

== ENCOUNTER 2020-12-27 23:07 | Observation (INO) | payer MEDICARE, BC ==
[2020-12-27 23:46] LABS: #Lymphocytes 0.6 thou/uL (1.20-3.40); #Monocytes 0.4 thou/uL (0.11-0.59); #Neutrophils 9.3 thou/uL (1.40-6.50); %Basophils 0.2 % (0.0-1.0); %Eosinophils 0.1 % (0.0-10.0); %Lymphocytes 6.2 % (21.0-51.0); %Neutrophils 89.6 % (42.0-75.0); Hemoglobin 13.3 g/dL (12.0-16.0); Mean Corpuscular HGB CONC 33.3 g/dL (32.0-36.0); Mean Corpuscular Hemoglobin 31.2 pg (27.0-31.0); Mean Corpuscular Volume 93.9 fL (78.0-98.0); Mean Platelet Volume 7.6 fL (7.4-10.4); Platelet Count 202 thou/uL (130-400); RBC Distribution Width 11.6 % (11.5-14.5); Red Blood Cell (RBC) Count 4.27 mill/uL (4.20-5.40); White Blood Cell (WBC) Count 10.4 thou/uL (4.8-10.8)
[2020-12-28 00:08] LABS: ALT (SGPT) 69 U/L (8-55); AST (SGOT) 91 U/L (5-34); Alkaline Phosphatase 74 U/L (40-110); Anion Gap 13 mmol/L (10-20); BUN (Urea Nitrogen) 11 mg/dL (9.8-20.1); Bilirubin, Total 0.5 mg/dL (0.2-1.2); Calc. Creatinine Clearance 0 mL/min (70-130); Calcium 9.7 mg/dL (7.8-10.44); Carbon Dioxide 27 mmol/L (23-31); Chloride 100 mmol/L (98-107); Globulin 2.4 g/dL (2.4-3.5); Glucose 130 mg/dL (80-115); Potassium 4.6 mmol/L (3.5-5.1); Protein, Total 6.4 g/dL (5.8-8.1); Sodium 135 mmol/L (136-145)
[2020-12-28] MEDS ORDERED: Ondansetron ODT 4 MG TAB PO PRN ×2 (00:59→08:18)
[2020-12-28] MEDS ORDERED: Ondansetron PF 4 MG/2 ML Vial IVP PRN (00:59)
[2020-12-28] MEDS ORDERED: Acetaminophen 500 MG TAB PO PRN (01:01)
[2020-12-28] MEDS: Lactated Ringer's 1,000 ML IV SCH ×2 (01:18→08:17)
[2020-12-28 01:19] VITALS: BMI 32.9
[2020-12-28] MEDS: Ketorolac Tromethamine 30 MG/ML VIAL IVP PRN ×2 (01:19→08:13)
[2020-12-28] MEDS: Promethazine 25 MG TAB PO PRN ×2 (01:19→13:37)
[2020-12-28] MEDS: Promethazine HCl 25 MG/ML VIAL IM PRN ×2 (01:28→10:24)
[2020-12-28 05:21] LABS: #Eosinphils 0.2 thou/uL (0.0-0.7); #Lymphocytes 1.4 thou/uL (1.20-3.40); #Monocytes 0.4 thou/uL (0.11-0.59); #Neutrophils 7.7 thou/uL (1.40-6.50); %Basophils 0.3 % (0.0-1.0); %Eosinophils 1.7 % (0.0-10.0); %Lymphocytes 14.4 % (21.0-51.0); %Monocytes 4.3 % (0.0-10.0); %Neutrophils 79.2 % (42.0-75.0); Hemoglobin 12.9 g/dL (12.0-16.0); Mean Corpuscular HGB CONC 33.1 g/dL (32.0-36.0); Mean Corpuscular Hemoglobin 31.1 pg (27.0-31.0); Mean Corpuscular Volume 93.8 fL (78.0-98.0); Mean Platelet Volume 7.6 fL (7.4-10.4); Platelet Count 195 thou/uL (130-400); RBC Distribution Width 11.7 % (11.5-14.5); Red Blood Cell (RBC) Count 4.15 mill/uL (4.20-5.40); White Blood Cell (WBC) Count 9.8 thou/uL (4.8-10.8)
[2020-12-28 05:40] LABS: ALT (SGPT) 62 U/L (8-55); AST (SGOT) 77 U/L (5-34); Albumin 3.7 g/dL (3.4-4.8); Alkaline Phosphatase 70 U/L (40-110); Anion Gap 14 mmol/L (10-20); BUN (Urea Nitrogen) 11 mg/dL (9.8-20.1); Bilirubin, Total 0.4 mg/dL (0.2-1.2); Calc. Creatinine Clearance 103 mL/min (70-130); Calcium 9.7 mg/dL (7.8-10.44); Carbon Dioxide 26 mmol/L (23-31); Chloride 101 mmol/L (98-107); Globulin 2.3 g/dL (2.4-3.5); Glucose 108 mg/dL (80-115); Lipase 11 U/L (8-78); Potassium 4.5 mmol/L (3.5-5.1); Sodium 136 mmol/L (136-145)
[2020-12-28] MEDS ORDERED: Acetaminophen 325 MG TAB PO PRN (08:18)
[2020-12-28] MEDS ORDERED: CAFFEINE PO PRN (08:18)
[2020-12-28] MEDS ORDERED: [UNRECOGNIZED DRUG - OTHER] TOP PRN (08:18)
[2020-12-28] MEDS ORDERED: Acetaminophen/Codeine 30-300mg Tablet PO PRN (08:18)
[2020-12-28] MEDS ORDERED: ACETAMINOPHEN PO PRN (08:18)
[2020-12-28] MEDS ORDERED: Guaifenesin DM 100-10/5 ML UDCUP PO PRN (08:18)
[2020-12-28] MEDS ORDERED: [UNRECOGNIZED DRUG - OTHER] PO PRN (08:18)
[2020-12-28] MEDS ORDERED: Docusate 100 MG CAP PO SCH (09:00)
[2020-12-28] MEDS: Morphine 4 MG/ML VIAL SLOW IVP PRN ×2 (10:24→12:31)
[2020-12-28] MEDS: traMADol HCl 50 MG TAB PO SCH ×3 (11:52→20:13)
[2020-12-28] MEDS: Icosapent Ethyl 1 GM CAPSULE PO SCH ×2 (13:37→20:12)
[2020-12-28] MEDS: rOPINIRole HCl 0.5 MG TAB PO SCH ×3 (13:37→20:13)
[2020-12-28] MEDS: Fenofibrate Nanocrystallized 145 MG TAB PO SCH (13:38)
[2020-12-28] MEDS: CeleCOXIB 100 MG CAP PO SCH (13:38)
[2020-12-28] MEDS ORDERED: Nebivolol HCl 5 MG TAB PO SCH (21:00)
[2020-12-29] MEDS ORDERED: Levothyroxine Sodium 75 MCG TAB PO SCH (06:00)
[2020-12-29 07:41] VITALS: BP 116/70; TEMP 98.2
[2020-12-29] MEDS ORDERED: Losartan 25 MG TAB PO SCH (09:00)
[2020-12-29] MEDS ORDERED: Cholecalciferol 1,000 UNITS (25 MCG) TAB PO SCH (09:00)
[2020-12-29] MEDS: CeleCOXIB 100 MG CAP PO SCH (09:25)
[2020-12-29] MEDS: Fenofibrate Nanocrystallized 145 MG TAB PO SCH (09:27)
[2020-12-29] MEDS: Icosapent Ethyl 1 GM CAPSULE PO SCH (09:27)
[2020-12-29] MEDS: rOPINIRole HCl 0.5 MG TAB PO SCH (09:27)
[2020-12-29] MEDS: traMADol HCl 50 MG TAB PO SCH (09:28)
[2021-01-02] MEDS ORDERED: DUPILUMAB SC SCH (09:00)
== END 2020-12-29 12:30 | disposition home or self-care (01) ==
LOC: ERS 23:07 → SURG A 12-28 00:28
PROVIDERS: ADMIT Specialist; ATTEND Specialist
DX: K91.0 Vomiting following gastrointestinal surgery (principal); R10.11 Right upper quadrant pain; E03.9 Hypothyroidism, unspecified; E78.1 Pure hyperglyceridemia; G62.9 Polyneuropathy, unspecified; I10 Essential (primary) hypertension; K21.9 Gastro-esophageal reflux disease without esophagitis; K58.9 Irritable bowel syndrome, unspecified; Z79.899 Other long term (current) drug therapy; Z88.1 Allergy status to other antibiotic agents; Z88.8 Allergy status to other drugs, medicaments and biological substances; Z90.49 Acquired absence of other specified parts of digestive tract; Z98.890 Other specified postprocedural states
CPT/HCPCS: 80053 ×2; 83690; 85025 ×2; 96372; 96374; 96375; 96376; G0378 ×2; 36415; J1885; J2270; J2550; J7120; Q0162; Q0169

== ENCOUNTER 2021-02-07 11:09 | Outpatient (CLI) | payer MEDICARE, BC | END 2021-02-07 11:10 | disposition home or self-care (01) | LOC: BICMAMMO 11:09 | PROVIDERS: ATTEND Internal Medicine | DX: Z12.31 Encounter for screening mammogram for malignant neoplasm of breast (principal) | CPT/HCPCS: 77063; 77067 ==

== ENCOUNTER 2021-06-06 09:59 | Outpatient (CLI) | payer MEDICARE, BC ==
[2021-06-07] LABS: SARS-CoV-2 PCR by NAA Not Detected (NotDetected)
== END 2021-06-06 10:00 | disposition home or self-care (01) ==
LOC: LABBT 09:59
PROVIDERS: ATTEND Internal Medicine Gastroenterology
DX: Z01.812 Encounter for preprocedural laboratory examination (principal); K21.9 Gastro-esophageal reflux disease without esophagitis; K44.9 Diaphragmatic hernia without obstruction or gangrene; R11.2 Nausea with vomiting, unspecified; Z20.822 Contact with and (suspected) exposure to COVID-19
CPT/HCPCS: U0003; U0005

== ENCOUNTER 2021-06-10 10:26 | Outpatient (CLI) | payer MEDICARE, BC | END 2021-06-10 10:27 | disposition home or self-care (01) | LOC: RAD 10:26 | PROVIDERS: ATTEND Internal Medicine Gastroenterology | DX: R11.2 Nausea with vomiting, unspecified (principal); K21.9 Gastro-esophageal reflux disease without esophagitis | CPT/HCPCS: 74246 ==

== ENCOUNTER 2021-06-20 10:14 | Outpatient (CLI) | payer MEDICARE, BC ==
[2021-06-20 12:07] LABS: Anion Gap 14 mmol/L (10-20); BUN (Urea Nitrogen) 19 mg/dL (9.8-20.1); Calc. Creatinine Clearance 0 mL/min (70-130); Calcium 9.7 mg/dL (7.8-10.44); Carbon Dioxide 26 mmol/L (23-31); Chloride 106 mmol/L (98-107); Glucose 90 mg/dL (80-115); Potassium 4.8 mmol/L (3.5-5.1); Sodium 141 mmol/L (136-145)
== END 2021-06-20 10:15 | disposition home or self-care (01) ==
LOC: LABBT 10:14
PROVIDERS: ATTEND Surgery
DX: Z01.818 Encounter for other preprocedural examination (principal); K31.1 Adult hypertrophic pyloric stenosis
CPT/HCPCS: 80048; 93005; 93010

== ENCOUNTER 2022-02-25 08:45 | Outpatient (CLI) | payer MEDICARE, BC | END 2022-02-25 08:46 | disposition home or self-care (01) | LOC: BICMAMMO 08:45 | PROVIDERS: ATTEND Internal Medicine | DX: Z12.31 Encounter for screening mammogram for malignant neoplasm of breast (principal); Z13.820 Encounter for screening for osteoporosis; Z78.0 Asymptomatic menopausal state; M85.89 Other specified disorders of bone density and structure, multiple sites | CPT/HCPCS: 77063; 77067; 77080 ==

== ENCOUNTER 2023-04-02 09:31 | Outpatient (CLI) | payer MEDICARE, BC | END 2023-04-02 09:32 | disposition home or self-care (01) | LOC: BICMAMMO 09:31 | PROVIDERS: ATTEND Internal Medicine | DX: Z12.31 Encounter for screening mammogram for malignant neoplasm of breast (principal) | CPT/HCPCS: 77063; 77067 ==

== ENCOUNTER 2023-10-07 16:00 | Outpatient (CLI) | payer MEDICARE | END 2023-10-07 16:01 | disposition home or self-care (01) | LOC: SLEEPLAB 16:00 | PROVIDERS: ATTEND Internal Medicine | DX: G47.33 Obstructive sleep apnea (adult) (pediatric) (principal); R53.83 Other fatigue; G47.61 Periodic limb movement disorder; R51.9 Headache, unspecified; E66.9 Obesity, unspecified; R06.83 Snoring; G47.00 Insomnia, unspecified; Z68.32 Body mass index [BMI] 32.0-32.9, adult | CPT/HCPCS: 95800 ==

== ENCOUNTER 2024-05-03 13:34 | Outpatient (CLI) | payer MEDICARE | END 2024-05-03 13:35 | disposition home or self-care (01) | LOC: BICMAMMO 13:34 | PROVIDERS: ATTEND Internal Medicine | DX: Z12.31 Encounter for screening mammogram for malignant neoplasm of breast (principal) | CPT/HCPCS: 77063; 77067 ==